=== PATIENT | male | born 1985 | race Hispanic/Latino ===

== ENCOUNTER 2017-07-17 23:32 | Emergency (ER) | payer OTHER ==
[2017-07-18] MEDS ORDERED: CYCLOBENZAPRINE HCL 10 MG TABLET ONE (00:44)
[2017-07-18] MEDS ORDERED: KETOROLAC TROMETHAMINE 60 MG/2 ML VIAL ONE (00:44)
== END 2017-07-18 01:02 | disposition home or self-care (01) ==
LOC: EDH 23:32
DX: S29.012A Strain of muscle and tendon of back wall of thorax, initial encounter (principal); V49.49XA Driver injured in collision with other motor vehicles in traffic accident, initial encounter; Y93.89 Activity, other specified; Y92.89 Other specified places as the place of occurrence of the external cause; Y99.8 Other external cause status
CPT/HCPCS: 72072; 96372; 99284; J1885